=== PATIENT | male | born 1950 | race Caucasian/White ===

== ENCOUNTER 2021-08-27 10:27 | Outpatient (CLI) | payer OTHER ==
[~2021-08-27] VITALS: Ht 177.8 cm; Wt 88.5 kg
[2021-08-27] MEDS ORDERED: albuterol 2.5 MG/3 ML nebule NEB PRN (11:05)
== END 2021-08-27 23:59 | disposition home or self-care (01) ==
LOC: RT 10:27
PROVIDERS: ATTEND Chiropractor
DX: J92.9 Pleural plaque without asbestos (principal); F17.210 Nicotine dependence, cigarettes, uncomplicated; Z79.899 Other long term (current) drug therapy
CPT/HCPCS: 71046; 94060; 94760